=== PATIENT | female | born 1995 | race American Indian/Alaskan Native ===

== ENCOUNTER 2017-10-07 14:42 | Emergency (ER) | payer OTHER ==
[2017-10-07 14:49] VITALS: BP 119/80
--- NOTE | 2017-10-07 17:23 | Emergency Department Report ---
Chief Complaint: Skin/Abscess/Foreign Body Stated Complaint: RIGHT ARM PAIN Time Seen by Provider: 10/07/17 16:56 - HPI History of Present Illness: Patient is a 21-year-old female who is presenting with some discomfort at the right axilla. Patient has a history of hidradenitis as well as several surgeries to remove her glands. Patient states that she has some mild discomfort however it is not at the point of pain that she has had in previous visits. Patient denies any fever nausea vomiting diarrhea. Patient states his aching pain approximately a 4 out of 10 in severity. - ROS Review of Systems: Review of systems is negative except for those elements in the HPI - Exam Vital Signs: Vital Signs 10/07/17 14:46 Temperature 98.2 F Pulse Rate 86 Respiratory 18 Rate Blood Pressure 119/80 O2 Sat by Pulse 100 Oximetry Physical Exam: Focused physical exam patient has tenderness to the right axilla. She does have some chronically opened areas that are not draining any. Material. There is no erythema there is no fluctuance. There is quite a deal of scar tissue present with tenderness MSE screening note: Focused history and physical exam performed. Due to findings the following was ordered: ED Medical Decision Making - Medical Decision Making Patient will be empirically started on antibiotics and discharged home ED Disposition for MSE Clinical Impression: Hydradenitis Disposition: DC-01 TO HOME OR SELFCARE Is pt being admited?: No Does the pt Need Aspirin: No Condition: Fair Prescriptions: Acetaminophen/Codeine [Tylenol /Codeine # 3 tab] 1 tab PO Q6H PRN #20 tab PRN Reason: Pain Doxycycline Monohydrate [Doxycycline Monohydrate CAP] 100 mg PO BID #20 capsule Referrals: PRIMARY CARE, [Primary Care Provider] - 3-5 Days Forms: Work/School Release Form(ED)
== END 2017-10-07 17:33 | disposition home or self-care (01) ==
LOC: ED 14:42
DX: L73.2 Hidradenitis suppurativa (principal)
CPT/HCPCS: 99282

== ENCOUNTER 2017-11-18 16:23 | Emergency (ER) | payer OTHER ==
--- NOTE | 2017-11-18 18:13 | XRay Report ---
FINAL REPORT EXAM: XR ANKLE 3+V RT HISTORY: PAIN TECHNIQUE: AP, oblique and lateral radiographs of the right ankle. PRIORS: None. FINDINGS: No fracture. No dislocation. Normal mineralization. There is soft tissue swelling surrounding the right ankle. IMPRESSION: Soft tissue swelling of the right ankle without acute osseous abnormality.
[2017-11-18] MEDS ORDERED: FLEXERIL PO ONE (20:13)
[2017-11-18] MEDS ORDERED: NORCO 5/325 PO ONE (20:13)
--- NOTE | 2017-11-18 21:25 | Emergency Department Report ---
ED Lower Extremity HPI - General Chief Complaint: Extremity Injury, Lower Stated Complaint: R ANKLE PAIN Time Seen by Provider: 11/18/17 19:50 Source: patient Mode of arrival: Ambulatory Limitations: No Limitations - History of Present Illness Initial Comments: 22 year old female presents to ED with right ankle pain x 2-3 weeks. patient denies injury or trauma. patient states she was just walking and ankle began to swell. patient states pain is throbbing and aching in nature and present in anterior and lateral portion of ankle. patient is stable, neurologically intact and in no acute distress. patient is ambulatory with antalgic gait. patient states LMP was yesterday. MD Complaint: ankle injury -: Gradual, week(s) Injury: Ankle: Right Type of Injury: unknown Severity: mild Improves With: immobilization, rest Worsens With: weight bearing, movement Context: walking Associated Symptoms: swelling, able to partially bear weight, ambulatory. denies: snap/pop sensation, numbness, tingling - Related Data Previous Rx's Medication Instructions Recorded Last Taken Type Ibuprofen [Motrin] 600 mg PO Q8H PRN #40 tablet 11/25/15 Unknown Rx LORazepam [Ativan] 1 mg PO QHS #15 tab 11/25/15 Unknown Rx Sulfamethoxazole/Trimethoprim 1 each PO BID #14 tablet 11/25/15 Unknown Rx [Bactrim DS TAB] Acetaminophen/Codeine [Tylenol 1 tab PO Q6H PRN #20 tab 10/07/17 Unknown Rx /Codeine # 3 tab] Doxycycline Monohydrate 100 mg PO BID #20 capsule 10/07/17 Unknown Rx [Doxycycline Monohydrate CAP] Meloxicam 7.5 mg PO QAM #5 tablet 11/18/17 Unknown Rx methOCARBAMOL [Robaxin TAB] 500 mg PO TID #15 tab 11/18/17 Unknown Rx Allergies Allergy/AdvReac Type Severity Reaction Status Date / Time No Known Allergies Allergy Verified 11/25/15 04:41 ED Review of Systems ROS: Stated complaint: R ANKLE PAIN Other details as noted in HPI Constitutional: denies: chills, fever Eyes: denies: eye pain, eye discharge, vision change ENT: denies: ear pain, throat pain Respiratory: denies: cough, shortness of breath, wheezing Cardiovascular: denies: chest pain, palpitations Endocrine: no symptoms reported Gastrointestinal: denies: abdominal pain, nausea, diarrhea Genitourinary: denies: urgency, dysuria, discharge Musculoskeletal: joint swelling, arthralgia. denies: back pain Skin: denies: rash, lesions Neurological: denies: headache, weakness, paresthesias Psychiatric: denies: anxiety, depression Hematological/Lymphatic: denies: easy bleeding, easy bruising ED Past Medical Hx - Past Medical History Hx Hypertension: Yes (not on meds) Additional medical history: Anxiety, recurrent abscess right axillary - Surgical History Additional Surgical History: bilateral armpit surgery - Social History Smoking Status: Never Smoker Substance Use Type: None - Medications Home Medications: Home Medications Medication Instructions Recorded Confirmed Last Taken Type Ibuprofen [Motrin] 600 mg PO Q8H PRN #40 tablet 11/25/15 Unknown Rx LORazepam [Ativan] 1 mg PO QHS #15 tab 11/25/15 Unknown Rx Sulfamethoxazole/Trimethoprim 1 each PO BID #14 tablet 11/25/15 Unknown Rx [Bactrim DS TAB] Acetaminophen/Codeine [Tylenol 1 tab PO Q6H PRN #20 tab 10/07/17 Unknown Rx /Codeine # 3 tab] Doxycycline Monohydrate 100 mg PO BID #20 capsule 10/07/17 Unknown Rx [Doxycycline Monohydrate CAP] Meloxicam 7.5 mg PO QAM #5 tablet 11/18/17 Unknown Rx methOCARBAMOL [Robaxin TAB] 500 mg PO TID #15 tab 11/18/17 Unknown Rx ED Physical Exam - General Limitations: No Limitations General appearance: alert, in no apparent distress - Head Head exam: Present: atraumatic, normocephalic - Eye Eye exam: Present: normal appearance - ENT ENT exam: Present: mucous membranes moist - Neck Neck exam: Present: normal inspection, full ROM - Respiratory Respiratory exam: Present: normal lung sounds bilaterally. Absent: respiratory distress, wheezes - Cardiovascular Cardiovascular Exam: Present: regular rate, normal rhythm. Absent: systolic murmur, diastolic murmur, rubs, gallop - GI/Abdominal GI/Abdominal exam: Present: soft, normal bowel sounds. Absent: distended, tenderness, guarding, rebound - Extremities Exam Extremities exam: Present: normal inspection - Expanded Lower Extremity Exam Right Hip exam: Present: normal inspection Upper Leg exam: Present: normal inspection Knee exam: Present: normal inspection Lower Leg exam: Present: normal inspection Ankle exam: Present: tenderness, swelling (mild). Absent: full ROM, abrasion, laceration, ecchymosis, deformity, crepidus, dislocation, erythema Neuro vascular tendon exam: Present: no vascular compromise. Absent: pulse deficit, abnormal cap refill, sensory deficit Gait: Positive: antalgic - Back Exam Back exam: Present: normal inspection - Neurological Exam Neurological exam: Present: alert, oriented X3, abnormal gait (antalgic gait due to pain) - Psychiatric Psychiatric exam: Present: normal affect, normal mood - Skin Skin exam: Present: warm, dry, intact, normal color. Absent: rash ED Course Vital Signs 11/18/17 11/18/17 17:04 21:34 Temperature 98.4 F 98.6 F Pulse Rate 69 72 Respiratory 20 16 Rate Blood Pressure 127/76 Blood Pressure 130/80 [Right] O2 Sat by Pulse 100 100 Oximetry ED Lower Extremity MDM - Radiology Data Radiology results: report reviewed xr right ankle soft tissue swelling of right ankle without acute bony abnormality. - Medical Decision Making 22 year old female presents to ED with right ankle pain and mild intermittent swelling x2-3 weeks. patient is ambulatory with antalgic gait. patient has no acute bony abnormalities on imaging. patient will be referred to follow up with Dr. Kirby tomorrow for further evaluation. patient placed in bill wrap and provided with crutches. patient is stable, neurologically intact and in no acute distress. Critical care attestation.: If time is entered above; I have spent that time in minutes in the direct care of this critically ill patient, excluding procedure time. ED Disposition Clinical Impression: Ankle strain Qualifiers: Encounter type: initial encounter Laterality: right Qualified Code(s): S96.911A - Strain of unspecified muscle and tendon at ankle and foot level, right foot, initial encounter Disposition: - TO HOME OR SELFCARE Is pt being admited?: No Does the pt Need Aspirin: No Condition: Stable Instructions: Ankle Sprain (ED), Ankle Exercises (GEN) Prescriptions: Meloxicam 7.5 mg PO QAM #5 tablet methOCARBAMOL [Robaxin TAB] 500 mg PO TID #15 tab Referrals: MARIELENA KIRBY MD [Staff Physician] - 2-3 Days Forms: Accompanied Note, Work/School Release Form(ED)
[2017-11-18] MEDS ORDERED: REGLAN IV ONE (21:26)
[2017-11-18 21:35] VITALS: BP 130/80
== END 2017-11-18 21:33 | disposition home or self-care (01) ==
LOC: ED 16:23
DX: S96.911A Strain of unspecified muscle and tendon at ankle and foot level, right foot, initial encounter (principal); X58.XXXA Exposure to other specified factors, initial encounter; Y93.89 Activity, other specified; Y92.89 Other specified places as the place of occurrence of the external cause; Y99.8 Other external cause status
CPT/HCPCS: 96374

== ENCOUNTER 2018-02-23 09:21 | Emergency (ER) | payer MEDICAID ==
[2018-02-23] MEDS ORDERED: MOTRIN PO ONE (10:55)
--- NOTE | 2018-02-23 11:02 | Emergency Department Report ---
ED Lower Extremity HPI - General Chief Complaint: Extremity Injury, Lower Stated Complaint: L ANKLE BONE STICKING OUT Time Seen by Provider: 02/23/18 10:54 Source: patient Mode of arrival: Ambulatory Limitations: No Limitations - History of Present Illness Initial Comments: This is a 22-year-old female nontoxic, well nourished in appearance, no acute signs of distress presents to the ED with c/o of left foot and ankle pain 2 weeks. 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 Patient denies any trauma. Patient denies any numbness, tingling, fever, chills, nausea, vomiting, headache, stiff neck. Patient denies any joint redness or joint swelling. Patient denies any chest pain or shortness of breath. Patient denies any allergies or significant past medical history. MD Complaint: ankle injury, foot injury -: week(s) (2) Injury: Ankle: Left, Foot: Left Place: work Severity: mild Severity scale (0 -10): 8 Improves With: immobilization Worsens With: movement, palpation Associated Symptoms: swelling, able to partially bear weight, ambulatory. denies: snap/pop sensation, numbness, tingling, unable to bear weight - Related Data Previous Rx's Medication Instructions Recorded Last Taken Type Ibuprofen [Motrin] 600 mg PO Q8H PRN #40 tablet 11/25/15 Unknown Rx LORazepam [Ativan] 1 mg PO QHS #15 tab 11/25/15 Unknown Rx Sulfamethoxazole/Trimethoprim 1 each PO BID #14 tablet 11/25/15 Unknown Rx [Bactrim DS TAB] Acetaminophen/Codeine [Tylenol 1 tab PO Q6H PRN #20 tab 10/07/17 Unknown Rx /Codeine # 3 tab] Doxycycline Monohydrate 100 mg PO BID #20 capsule 10/07/17 Unknown Rx [Doxycycline Monohydrate CAP] Meloxicam 7.5 mg PO QAM #5 tablet 11/18/17 Unknown Rx methOCARBAMOL [Robaxin TAB] 500 mg PO TID #15 tab 11/18/17 Unknown Rx Ibuprofen [Motrin] 600 mg PO Q8H PRN #30 tablet 02/23/18 Unknown Rx Allergies Allergy/AdvReac Type Severity Reaction Status Date / Time No Known Allergies Allergy Verified 11/25/15 04:41 ED Review of Systems ROS: Stated complaint: L ANKLE BONE STICKING OUT Other details as noted in HPI Constitutional: denies: chills, fever Eyes: denies: eye pain, eye discharge, vision change ENT: denies: ear pain, throat pain Respiratory: denies: cough, shortness of breath, wheezing Cardiovascular: denies: chest pain, palpitations Endocrine: no symptoms reported Gastrointestinal: denies: abdominal pain, nausea, diarrhea Genitourinary: denies: urgency, dysuria, discharge Musculoskeletal: arthralgia. denies: back pain, joint swelling Skin: denies: rash, lesions Neurological: denies: headache, weakness, paresthesias Psychiatric: denies: anxiety, depression Hematological/Lymphatic: denies: easy bleeding, easy bruising ED Past Medical Hx - Past Medical History Previous Medical History?: Yes Hx Hypertension: Yes (not on meds) Additional medical history: Anxiety, recurrent abscess right axillary - Surgical History Past Surgical History?: Yes Additional Surgical History: bilateral armpit surgery - Social History Smoking Status: Never Smoker Substance Use Type: None - Medications Home Medications: Home Medications Medication Instructions Recorded Confirmed Last Taken Type Ibuprofen [Motrin] 600 mg PO Q8H PRN #40 tablet 11/25/15 Unknown Rx LORazepam [Ativan] 1 mg PO QHS #15 tab 11/25/15 Unknown Rx Sulfamethoxazole/Trimethoprim 1 each PO BID #14 tablet 11/25/15 Unknown Rx [Bactrim DS TAB] Acetaminophen/Codeine [Tylenol 1 tab PO Q6H PRN #20 tab 10/07/17 Unknown Rx /Codeine # 3 tab] Doxycycline Monohydrate 100 mg PO BID #20 capsule 10/07/17 Unknown Rx [Doxycycline Monohydrate CAP] Meloxicam 7.5 mg PO QAM #5 tablet 11/18/17 Unknown Rx methOCARBAMOL [Robaxin TAB] 500 mg PO TID #15 tab 11/18/17 Unknown Rx Ibuprofen [Motrin] 600 mg PO Q8H PRN #30 tablet 02/23/18 Unknown Rx ED Physical Exam - General Limitations: No Limitations General appearance: alert, in no apparent distress - Head Head exam: Present: atraumatic, normocephalic - Eye Eye exam: Present: normal appearance Pupils: Present: normal accommodation - ENT ENT exam: Present: normal exam, mucous membranes moist - Neck Neck exam: Present: normal inspection, full ROM. Absent: tenderness, meningismus - Respiratory Respiratory exam: Present: normal lung sounds bilaterally. Absent: respiratory distress, wheezes, rales, rhonchi, stridor - Cardiovascular Cardiovascular Exam: Present: regular rate, normal rhythm, normal heart sounds. Absent: bradycardia, tachycardia, irregular rhythm, systolic murmur, diastolic murmur, rubs, gallop - GI/Abdominal GI/Abdominal exam: Present: soft, normal bowel sounds - Extremities Exam Extremities exam: Present: normal inspection, full ROM, tenderness, normal capillary refill. Absent: pedal edema, joint swelling, calf tenderness - Expanded Lower Extremity Exam Left Hip exam: Present: normal inspection, full ROM Upper Leg exam: Present: normal inspection, full ROM Knee exam: Present: normal inspection, full ROM Lower Leg exam: Present: normal inspection, full ROM. Absent: tenderness, swelling, abrasion, laceration, ecchymosis, deformity, crepidus, dislocation, erythema, palpable cord, Rasheed's sign Ankle exam: Present: normal inspection, full ROM, tenderness, swelling. Absent : abrasion, laceration, ecchymosis, deformity, crepidus, dislocation, erythema, anterior draw sign Foot/Toe exam: Present: normal inspection, full ROM, tenderness, swelling. Absent: abrasion, laceration, ecchymosis, deformity, crepidus, dislocation, erythema, amputation, puncture wound, foreign body, calcaneal tenderness, tenderness at base of 5th metatarsal, nail avulsion, subungual hematoma Neuro vascular tendon exam: Present: no vascular compromise. Absent: pulse deficit, abnormal cap refill, motor deficit, sensory deficit, tendon deficit, extremity cold to touch, pallor, abnormal 2-point discrimination, decreased fine /light touch, foot drop, peroneal nerve deficit, significant pain with passive ROM of distal joint Gait: Positive: observed and limited by pain - Back Exam Back exam: Present: normal inspection, full ROM - Neurological Exam Neurological exam: Present: alert, oriented X3, normal gait - Psychiatric Psychiatric exam: Present: normal affect, normal mood - Skin Skin exam: Present: warm, dry, intact, normal color. Absent: rash ED Course Vital Signs 02/23/18 09:33 Temperature 98.6 F Pulse Rate 82 Respiratory 16 Rate Blood Pressure 137/67 O2 Sat by Pulse 98 Oximetry - Reevaluation(s) Reevaluation #1: 02/23/18 10:58 Patient is speaking in full sentences with no signs of distress noted. ED Lower Extremity MDM - Medical Decision Making This is a 22-year-old female that presents with left ankle and foot strain. Patient is stable and was examined by me. I referred patient to an orthopedic doctor for further evaluation. X-ray has been obtained and dictated by the radiologist. Patient is notified of the x-ray report with noted by the patient. Patient does have normal gait with no tenderness and no joint swelling. No ecchymosis. no joint redness or swelling. Not warm to touch. No signs of cellulites present. Patient received ankle stirrup and crutches and was educated by RN how to use crutches. Patient was instructed to RICE therapy. Patient received Motrin for pain. Patient is discharged with Motrin. At time of discharge, the patient does not seem toxic or ill in appearance. No acute signs of distress noted. Patient agrees to discharge treatment plan of care. No further questions noted by the patient. Critical care attestation.: If time is entered above; I have spent that time in minutes in the direct care of this critically ill patient, excluding procedure time. ED Disposition Clinical Impression: Strain of left foot Qualifiers: Encounter type: initial encounter Qualified Code(s): S96.912A - Strain of unspecified muscle and tendon at ankle and foot level, left foot, initial encounter Strain of left ankle Qualifiers: Encounter type: initial encounter Qualified Code(s): S96.912A - Strain of unspecified muscle and tendon at ankle and foot level, left foot, initial encounter Disposition: - TO HOME OR SELFCARE Is pt being admited?: No Does the pt Need Aspirin: No Condition: Stable Instructions: RICE Therapy (ED), Ibuprofen (By mouth), Crutch Instructions (ED) Additional Instructions: Follow-up with a orthopedic doctor in 3-5 days or if symptoms worsen and continue return to emergency room as soon as possible. Prescriptions: Ibuprofen [Motrin] 600 mg PO Q8H PRN #30 tablet PRN Reason: Pain Referrals: PRIMARY CARE, [Primary Care Provider] - 3-5 Days MARIELENA CHAO MD [Staff Physician] - 3-5 Days [facility] [Outside] - 3-5 Days [facility] [Outside] - 3-5 Days Forms: Work/School Release Form(ED)
--- NOTE | 2018-02-23 11:24 | XRay Report ---
LEFT FOOT, 3 views: History: Left foot pain Normal bone mineralization. No acute osseous findings or joint pathology is identified. There is moderate soft tissue swelling of the distal foot. IMPRESSION: Soft tissue swelling. No acute osseous findings identified.
--- NOTE | 2018-02-23 11:24 | XRay Report ---
LEFT ANKLE, 3 views: History: left ankle pain. Bone mineralization is normal. No acute osseous abnormality or joint pathology is identified. There is diffuse soft tissue swelling. IMPRESSION: Soft tissue swelling. No acute osseous injury is identified.
[2018-02-23 11:47] VITALS: BP 114/52
== END 2018-02-23 11:57 | disposition home or self-care (01) ==
LOC: ED 09:21
DX: S96.912A Strain of unspecified muscle and tendon at ankle and foot level, left foot, initial encounter (principal); I10 Essential (primary) hypertension; X58.XXXA Exposure to other specified factors, initial encounter; Y93.89 Activity, other specified; Y92.89 Other specified places as the place of occurrence of the external cause; Y99.8 Other external cause status
CPT/HCPCS: 99283

== ENCOUNTER 2018-05-17 00:01 | Emergency (ER) | payer SELFPAY ==
[2018-05-17 01:09] VITALS: BP 151/73
[2018-05-17] MEDS ORDERED: TORADOL IM ONE (03:59)
--- NOTE | 2018-05-17 05:05 | Emergency Department Report ---
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 presents for left- sided low back pain 3 days denies fall or injury or trauma woke up with left low back soreness after lifting heavy trays all night work pain is described as for T and burning tingling radiating from low back to the left lateral thigh with intermittent tingling and numbness is no weakness or paralysis no loss or decrease in bowel or bladder function patient is ambulatory to baseline per patient MD Complaint: back pain, back injury Onset/Timin -: days(s) Similar Symptoms Previously: Yes Place: work Radiation: left leg Severity: moderate Severity scale (0 -10): 4 Quality: burning, sharp Consistency: intermittent Improves With: none Worsens With: movement, sitting upright, walking, other (bending twisting, completind duties as formal waiter/waitress ) Context: turning/twisting, bending Associated Symptoms: numbness. denies: confusion, weakness, chest pain, difficulty walking, cough, difficulty urinating, diaphoresis, incontinence, fever/chills, constipation, headaches, abdominal pain, loss of appetite, malaise , nausea/vomiting, rash, seizure, shortness of breath, syncope - Related Data Previous Rx's Medication Instructions Recorded Last Taken Type Ibuprofen [Motrin] 600 mg PO Q8H PRN #40 tablet 11/25/15 Unknown Rx LORazepam [Ativan] 1 mg PO QHS #15 tab 11/25/15 Unknown Rx Sulfamethoxazole/Trimethoprim 1 each PO BID #14 tablet 11/25/15 Unknown Rx [Bactrim DS TAB] Acetaminophen/Codeine [Tylenol 1 tab PO Q6H PRN #20 tab 10/07/17 Unknown Rx /Codeine # 3 tab] Doxycycline Monohydrate 100 mg PO BID #20 capsule 10/07/17 Unknown Rx [Doxycycline Monohydrate CAP] Meloxicam 7.5 mg PO QAM #5 tablet 11/18/17 Unknown Rx methOCARBAMOL [Robaxin TAB] 500 mg PO TID #15 tab 11/18/17 Unknown Rx Ibuprofen [Motrin] 600 mg PO Q8H PRN #30 tablet 02/23/18 Unknown Rx Cyclobenzaprine [Flexeril] 10 mg PO BID PRN #20 tablet 05/17/18 Unknown Rx Menthol/Camphor [[place] 1 applic TP TID PRN #1 tube 05/17/18 Unknown Rx Ointment] Naproxen [Naprosyn] 500 mg PO BID PRN #30 tablet 05/17/18 Unknown Rx Allergies Allergy/AdvReac Type Severity Reaction Status Date / Time No Known Allergies Allergy Verified 11/25/15 04:41 ED Review of Systems ROS: Stated complaint: LEFT LEG NUMBNESS Other details as noted in HPI Constitutional: denies: chills, fever Eyes: denies: eye pain, eye discharge, vision change ENT: denies: ear pain, throat pain Respiratory: denies: cough, shortness of breath, wheezing Cardiovascular: denies: chest pain, palpitations Endocrine: no symptoms reported Gastrointestinal: denies: abdominal pain, nausea, diarrhea Genitourinary: denies: urgency, dysuria, discharge Musculoskeletal: back pain, myalgia. denies: joint swelling, arthralgia Skin: denies: rash, lesions Neurological: denies: headache, weakness, paresthesias, confusion, abnormal gait , vertigo Psychiatric: denies: anxiety, depression Hematological/Lymphatic: denies: easy bleeding, easy bruising ED Past Medical Hx - Past Medical History Previous Medical History?: Yes Hx Hypertension: Yes (not on meds) Additional medical history: Anxiety, recurrent abscess right axillary - Surgical History Past Surgical History?: Yes Additional Surgical History: bilateral armpit surgery - Social History Smoking Status: Never Smoker Substance Use Type: None - Medications Home Medications: Home Medications Medication Instructions Recorded Confirmed Last Taken Type Ibuprofen [Motrin] 600 mg PO Q8H PRN #40 tablet 11/25/15 Unknown Rx LORazepam [Ativan] 1 mg PO QHS #15 tab 11/25/15 Unknown Rx Sulfamethoxazole/Trimethoprim 1 each PO BID #14 tablet 11/25/15 Unknown Rx [Bactrim DS TAB] Acetaminophen/Codeine [Tylenol 1 tab PO Q6H PRN #20 tab 10/07/17 Unknown Rx /Codeine # 3 tab] Doxycycline Monohydrate 100 mg PO BID #20 capsule 10/07/17 Unknown Rx [Doxycycline Monohydrate CAP] Meloxicam 7.5 mg PO QAM #5 tablet 11/18/17 Unknown Rx methOCARBAMOL [Robaxin TAB] 500 mg PO TID #15 tab 11/18/17 Unknown Rx Ibuprofen [Motrin] 600 mg PO Q8H PRN #30 tablet 02/23/18 Unknown Rx Cyclobenzaprine [Flexeril] 10 mg PO BID PRN #20 tablet 05/17/18 Unknown Rx Menthol/Camphor [[place] 1 applic TP TID PRN #1 tube 05/17/18 Unknown Rx Ointment] Naproxen [Naprosyn] 500 mg PO BID PRN #30 tablet 05/17/18 Unknown Rx ED Physical Exam - General Limitations: No Limitations General appearance: alert, in no apparent distress - Head Head exam: Present: atraumatic, normocephalic - Eye Eye exam: Present: normal appearance - ENT ENT exam: Present: mucous membranes moist - Neck Neck exam: Present: normal inspection - Respiratory Respiratory exam: Present: normal lung sounds bilaterally. Absent: respiratory distress, wheezes, stridor, chest wall tenderness - Cardiovascular Cardiovascular Exam: Present: regular rate, normal rhythm, normal heart sounds. Absent: systolic murmur, diastolic murmur, rubs, gallop - GI/Abdominal GI/Abdominal exam: Present: soft, normal bowel sounds. Absent: distended, tenderness, guarding, rebound, rigid, organomegaly, mass, bruit, pulsatile mass , hernia - Rectal Rectal exam: Present: deferred - Extremities Exam Extremities exam: Present: normal inspection - Back Exam Back exam: Present: normal inspection, full ROM (no posterior vertebral point tenderness mild paraspinus back muscle pain , ), tenderness (left lateral low back muscle pain ), muscle spasm, paraspinal tenderness. Absent: CVA tenderness (R), CVA tenderness (L), vertebral tenderness - Expanded Back Exam Expanded Back exam: Absent: saddle anesthesia Back exam: Sciatic Notch Tenderness: Left, Positive Straight Leg Raise: Left, Negative Straight Leg Raising: Right - Neurological Exam Neurological exam: Present: alert, oriented X3, CN II-XII intact, normal gait, reflexes normal. Absent: motor sensory deficit - Expanded Neurological Exam Expanded Patient oriented to: Present: person, place, time Speech: Present: fluid speech Cranial nerves: EOM's Intact: Normal, Gag Reflex: Normal, Tongue Deviation: Normal, Nystagmus: Normal, Facial Sensation: Normal, Facial Palsy with Forehead Movement: Normal, Facial Palsy without Forehead Movement: Normal Cerebellar function: Finger to Nose: Normal, Heel to Garg: Normal, Romberg: Normal Upper motor neuron: Chavez Neglect: Normal, Pronator Drift: Normal, Babinski Sign : Normal, Sensory Extinction: Normal Sensory exam: Upper Extremity Light Touch: Normal, Upper Extremity Pin Prick: Normal, Upper Extremity Temperature: Normal, UE 2 Point Discrimination: Normal, Lower Extremity Light Touch: Normal, Lower Extremity Pin Prick: Normal, Lower Extremity Temperature: Normal, LE 2 Point Discrimination: Normal Motor strength exam: RUE: 5, LUE: 5, RLE: 5, LLE: 5 DTR: bicep (R): 2+, bicep (L): 2+, tricep (R): 2+, tricep (L): 2+, knee (R): 2+ , knee (L): 2+, ankle (R): 2+, ankle (L): 2+ Best Eye Response (Rudy): (4) open spontaneously Best Motor Response (Kirby): (6) obeys commands Best Verbal Response (Kirby): (5) oriented Rudy Total: 15 - Psychiatric Psychiatric exam: Present: normal affect, normal mood - Skin Skin exam: Present: warm, dry, intact, normal color. Absent: rash ED Course Vital Signs 05/17/18 05/17/18 01:02 01:34 Temperature 98.3 F 98.3 F Pulse Rate 72 64 Respiratory 18 18 Rate Blood Pressure 151/73 151/73 O2 Sat by Pulse 99 99 Oximetry ED Medical Decision Making - Medical Decision Making This is a low back strain with sciatica left recurrent injury after interview the patient pain improved with NSAIDs plan NSAIDs muscle relaxants more sheet therapy low back exercises and follow with PCP in 2-3 days patient verbalizes understanding and agreement was signed with DC'd home in stable condition at this time Critical care attestation.: If time is entered above; I have spent that time in minutes in the direct care of this critically ill patient, excluding procedure time. ED Disposition Clinical Impression: Low back strain Qualifiers: Encounter type: initial encounter Qualified Code(s): S39.012A - Strain of muscle, fascia and tendon of lower back, initial encounter Disposition: DC TO HOME OR SELFCARE Is pt being admited?: No Does the pt Need Aspirin: No Condition: Good Instructions: Muscle Strain (ED), Low Back Strain (ED), Core Strengthening Exercises (GEN) Prescriptions: Cyclobenzaprine [Flexeril] 10 mg PO BID PRN #20 tablet PRN Reason: Muscle Spasm Menthol/Camphor [[place] Nemo Ointment] 1 applic TP TID PRN #1 tube PRN Reason: pain Naproxen [Naprosyn] 500 mg PO BID PRN #30 tablet PRN Reason: Pain , Severe (7-10) Referrals: [facility] [Outside] - 3-5 Days Forms: Work/School Release Form(ED) Time of Disposition: 05:11
== END 2018-05-17 05:20 | disposition home or self-care (01) ==
LOC: ED 00:01
DX: S39.012A Strain of muscle, fascia and tendon of lower back, initial encounter (principal); I10 Essential (primary) hypertension; F41.9 Anxiety disorder, unspecified; X50.0XXA Overexertion from strenuous movement or load, initial encounter; Y93.89 Activity, other specified; Y92.009 Unspecified place in unspecified non-institutional (private) residence as the place of occurrence of the external cause; Y99.8 Other external cause status
CPT/HCPCS: 96372; 99282; J1885

== ENCOUNTER 2019-09-10 12:02 | Emergency (ER) | payer SELFPAY ==
[2019-09-10 12:30] VITALS: BP 135/74
--- NOTE | 2019-09-10 12:43 | Emergency Department Report ---
ED Neck Pain/Injury HPI - General Chief Complaint: Shoulder Injury Stated Complaint: BOTH SHOULDER/PAIN EXTREME Time Seen by Provider: 09/10/19 12:32 Mode of arrival: Ambulatory Limitations: No Limitations - History of Present Illness Initial Comments: This is a 23-year-old female nontoxic, well nourished in appearance, no acute signs of distress presents to the ED with c/o of acute on chronic upper neck pain. Stated that pain shots to bilateral upper shoulder area. Denies any shoulder pain. Patient stated that the past 2 days she was moving and developed this pain. Patient denies any trauma. Denies any bladder or bowel instability. Patient denies any urinary symptoms. Denies any fever, chills, nausea, vomiting, headache, stiff neck, chest pain or shortness of breath. Patient denies any numbness or tingling. Denies any allergies. -: days(s) Place: home Radiation: right shoulder, left shoulder Severity: mild Severity scale (0 -10): 3 Quality: aching Consistency: intermittent Improves With: immobilization Worsens With: movement of extremity, movement of neck Associated Symptoms: none. denies: headache, fever, numbness, tingling, weakness, vertigo, difficulty walking, swollen glands, nausea, vomiting - Related Data Previous Rx's Medication Instructions Recorded Last Taken Type Ibuprofen [Motrin] 600 mg PO Q8H PRN #40 tablet 11/25/15 Unknown Rx LORazepam [Ativan] 1 mg PO QHS #15 tab 11/25/15 Unknown Rx Sulfamethoxazole/Trimethoprim 1 each PO BID #14 tablet 11/25/15 Unknown Rx [Bactrim DS TAB] Metoclopramide [Reglan] 10 mg PO TID PRN #28 tab 08/27/17 Unknown Rx Naproxen 500 mg PO BID PRN #60 tablet 08/27/17 Unknown Rx diphenhydrAMINE [Benadryl CAP] 25 mg PO Q8HR PRN #30 capsule 08/27/17 Unknown Rx Acetaminophen/Codeine [Tylenol 1 tab PO Q6H PRN #20 tab 10/07/17 Unknown Rx /Codeine # 3 tab] Doxycycline Monohydrate 100 mg PO BID #20 capsule 10/07/17 Unknown Rx [Doxycycline Monohydrate CAP] Meloxicam 7.5 mg PO QAM #5 tablet 11/18/17 Unknown Rx methOCARBAMOL [Robaxin TAB] 500 mg PO TID #15 tab 11/18/17 Unknown Rx Ibuprofen [Motrin] 600 mg PO Q8H PRN #30 tablet 02/23/18 Unknown Rx Cyclobenzaprine [Flexeril] 10 mg PO BID PRN #20 tablet 05/17/18 Unknown Rx Menthol/Camphor [[place] 1 applic TP TID PRN #1 tube 05/17/18 Unknown Rx Ointment] Naproxen [Naprosyn] 500 mg PO BID PRN #30 tablet 05/17/18 Unknown Rx Cyclobenzaprine [Flexeril] 10 mg PO QHS PRN #10 tablet 09/10/19 Unknown Rx Naproxen [Naprosyn] 500 mg PO Q8H PRN #20 tablet 09/10/19 Unknown Rx Allergies Allergy/AdvReac Type Severity Reaction Status Date / Time No Known Allergies Allergy Verified 11/25/15 04:41 ED Review of Systems ROS: Stated complaint: BOTH SHOULDER/PAIN EXTREME Other details as noted in HPI Constitutional: denies: chills, fever Eyes: denies: eye pain, eye discharge, vision change ENT: denies: ear pain, throat pain Respiratory: denies: cough, shortness of breath, wheezing Cardiovascular: denies: chest pain, palpitations Endocrine: no symptoms reported Gastrointestinal: denies: abdominal pain, nausea, diarrhea Genitourinary: denies: urgency, dysuria, discharge Musculoskeletal: denies: back pain, joint swelling, arthralgia Skin: denies: rash, lesions Neurological: denies: headache, weakness, paresthesias Psychiatric: denies: anxiety, depression Hematological/Lymphatic: denies: easy bleeding, easy bruising ED Past Medical Hx - Past Medical History Previous Medical History?: Yes Hx Hypertension: Yes Additional medical history: Anxiety, recurrent abscess right axillary - Surgical History Past Surgical History?: Yes Additional Surgical History: bilateral armpit surgery - Social History Smoking Status: Never Smoker Substance Use Type: None - Medications Home Medications: Home Medications Medication Instructions Recorded Confirmed Last Taken Type Ibuprofen [Motrin] 600 mg PO Q8H PRN #40 tablet 11/25/15 Unknown Rx LORazepam [Ativan] 1 mg PO QHS #15 tab 11/25/15 Unknown Rx Sulfamethoxazole/Trimethoprim 1 each PO BID #14 tablet 11/25/15 Unknown Rx [Bactrim DS TAB] Metoclopramide [Reglan] 10 mg PO TID PRN #28 tab 08/27/17 Unknown Rx Naproxen 500 mg PO BID PRN #60 tablet 08/27/17 Unknown Rx diphenhydrAMINE [Benadryl CAP] 25 mg PO Q8HR PRN #30 capsule 08/27/17 Unknown Rx Acetaminophen/Codeine [Tylenol 1 tab PO Q6H PRN #20 tab 10/07/17 Unknown Rx /Codeine # 3 tab] Doxycycline Monohydrate 100 mg PO BID #20 capsule 10/07/17 Unknown Rx [Doxycycline Monohydrate CAP] Meloxicam 7.5 mg PO QAM #5 tablet 11/18/17 Unknown Rx methOCARBAMOL [Robaxin TAB] 500 mg PO TID #15 tab 11/18/17 Unknown Rx Ibuprofen [Motrin] 600 mg PO Q8H PRN #30 tablet 02/23/18 Unknown Rx Cyclobenzaprine [Flexeril] 10 mg PO BID PRN #20 tablet 05/17/18 Unknown Rx Menthol/Camphor [[place] 1 applic TP TID PRN #1 tube 05/17/18 Unknown Rx Ointment] Naproxen [Naprosyn] 500 mg PO BID PRN #30 tablet 05/17/18 Unknown Rx Cyclobenzaprine [Flexeril] 10 mg PO QHS PRN #10 tablet 09/10/19 Unknown Rx Naproxen [Naprosyn] 500 mg PO Q8H PRN #20 tablet 09/10/19 Unknown Rx ED Physical Exam - General Limitations: No Limitations General appearance: alert, in no apparent distress - Head Head exam: Present: atraumatic, normocephalic - Eye Eye exam: Present: normal appearance - Neck Neck exam: Present: normal inspection, full ROM. Absent: tenderness, meningismus, lymphadenopathy - Extremities Exam Extremities exam: Present: normal inspection, full ROM, normal capillary refill. Absent: tenderness - Back Exam Back exam: Present: normal inspection, full ROM, paraspinal tenderness (bilateral cervical paraspinal area). Absent: tenderness, CVA tenderness (R), CVA tenderness (L), muscle spasm, vertebral tenderness, rash noted - Neurological Exam Neurological exam: Present: alert, oriented X3, normal gait - Psychiatric Psychiatric exam: Present: normal affect, normal mood - Skin Skin exam: Present: warm, dry, intact, normal color. Absent: rash ED Course Vital Signs 09/10/19 12:29 Temperature 98.4 F Pulse Rate 75 Respiratory 18 Rate Blood Pressure 135/74 O2 Sat by Pulse 95 Oximetry - Reevaluation(s) Reevaluation #1: 09/10/19 12:45 Patient is speaking in full sentences with no signs of distress noted. ED Medical Decision Making - Medical Decision Making This is a 23-year-old female that presents with cervical muscle strain. Patient is stable was examined by me. There is no spinal tenderness. There is no cauda equina syndrome during examination. No bladder or bowel instability. Patient is discharged with muscle relaxant and NSAID. Patient was instructed not to operate any machinery while taking muscle relaxant as they cause her drowsiness. Patient was referred to Follow-up with a primary care doctor in 3-5 days or if symptoms worsen and continue return to emergency room as soon as possible. At time of discharge, the patient does not seem toxic or ill in appearance. No acute signs of distress noted. Patient agrees to discharge treatment plan of care. No further questions noted by the patient. Critical care attestation.: If time is entered above; I have spent that time in minutes in the direct care of this critically ill patient, excluding procedure time. ED Disposition Clinical Impression: Cervical muscle strain Qualifiers: Encounter type: initial encounter Qualified Code(s): S16.1XXA - Strain of muscle, fascia and tendon at neck level, initial encounter Disposition: - TO HOME OR SELFCARE Is pt being admited?: No Does the pt Need Aspirin: No Condition: Stable Instructions: Muscle Strain (ED) Additional Instructions: Follow-up with a primary care doctor in 3-5 days or if symptoms worsen and continue return to emergency room as soon as possible. Prescriptions: Cyclobenzaprine [Flexeril] 10 mg PO QHS PRN #10 tablet PRN Reason: Muscle Spasm Naproxen [Naprosyn] 500 mg PO Q8H PRN #20 tablet PRN Reason: Pain , Severe (7-10) Referrals: PRIMARY CAREMD [Referring] - 3-5 Days CROW DESAI MD [Staff Physician] - 3-5 Days [facility] [Outside] - 3-5 Days [facility] [Outside] - 3-5 Days Forms: Work/School Release Form(ED)
== END 2019-09-10 12:59 | disposition home or self-care (01) ==
LOC: ED 12:02
DX: S16.1XXA Strain of muscle, fascia and tendon at neck level, initial encounter (principal); M25.511 Pain in right shoulder; M25.512 Pain in left shoulder; I10 Essential (primary) hypertension; F41.9 Anxiety disorder, unspecified; Z79.899 Other long term (current) drug therapy; X58.XXXA Exposure to other specified factors, initial encounter; Y93.89 Activity, other specified; Y92.89 Other specified places as the place of occurrence of the external cause; Y99.8 Other external cause status